=== PATIENT | female | born 1980 | race Caucasian/White ===

== ENCOUNTER 2023-06-27 10:35 | Inpatient (IN) | payer MEDICAID, SELFPAY ==
[2023-06-27] VITALS (11 sets, daily range): BP systolic 113–153; BP diastolic 70–96; PULSE 75–92; RESP 18–22; TEMP 24.4–37; O2SAT 94–100; BMI 33.9
--- NOTE | 2023-06-27 | HYST_PTH ---
PATIENT: SHIN LAWSON LOC: MS3 U#:[id number] AGE/SX: 42/F ROOM: [facility] [place] RE06/27/[address]: Dr. Lindsey Randall DO : 1980 BED: 1 DIS: 06/28/2023 SPEC #: [id number] RECD: 06/27/23 12:23 STATUS: LICHA ALVARO #: [id number] ROSENDO: 06/27/23 00:[address]: Lindsey Randall DEPT: SURGICAL PATHOLOGY RECD BY: Gelacio Michelle ENTERED: 06/27/23 12:23 SP TYPE: HYSTERECT OTHR DR: Dr. Bj Razo MD Tissues: Uterus, NOS Procedures: Surgery Specimen Level V HEADER OPERATION: ERAS, diagnostic laparoscopy PRE-OP DIAGNOSIS: Menorrhagia, fibroid uterus, anemia TISSUE SUBMITTED: Uterus, cervix, bilateral fallopian tubes MICROSCOPIC DIAGNOSIS Uterus, hysterectomy: Cervix - mild chronic inflammation. Endometrial polyp - simple hyperplasia without atypia. Endometrium - weakly proliferative endometrium. Myometrium - leiomyomas. Right fallopian tube - No pathologic change. Left fallopian tube - No pathologic change. AM:italia 06/28/2023 COMMENT Results from immunohistochemistry ([id number]) for surrogate HPV marker (p16) will be reported separately. MICROSCOPIC DESCRIPTION Slides are reviewed. GROSS DESCRIPTION Received in fixative is one container labeled with the patient's name and designated uterus. The specimen consists of a hysterectomy specimen consisting of a detached uterus measuring 12.0 x 11.0 x 7.0 cm. The cervical segment has been detached and measures 4.5 cm in length and 3.5 cm in diameter. The uterus with cervical segment weighs 498 gm. Also present free in the container are two portions of fallopian tubes, one measuring 3.0 cm in length and with a diameter of 0.6 cm. The other fallopian tube measures 3.0 cm in length and 0.8 cm in diameter. The endocervical canal measures 4.0 cm in length and is grossly unremarkable. The triangular endometrial cavity measures 6.0 x 5.5 cm. The velvety, light mejía endometrium measures up to 0.2 cm in thickness. An endometrial polyp is present in the anterior wall measuring 1.0 x 1.0 x 0.2 cm. The myometrium measures 2.8 cm in average thickness and is distorted by multiple spherical rubbery nodules that on cut surface reveal a whorled appearance. The nodules are subserosal, intramural and submucosal in location and range in size from 0.5 to 4.5 cm in greatest dimension. Several of the nodules on cut surface show foci of hemorrhage. S[employer] Supervisor sections are submitted as follows: 1 & 2 - cervix and endocervix, 3 - endometrial polyp, 4 & 5 - anterior myometrial wall, 6 & 7 - posterior myometrial wall, 8 - largest myometrial mass, 9 - second largest myometrial mass, 10 - third largest myometrial mass, 11 - one fallopian tube, 12 - the other fallopian tube. / AM:italia 06/27/2023 TC:1 CPT: 31966
--- NOTE | 2023-06-27 | IMM_PTH ---
PATIENT: SHIN LAWSON LOC: MS3 U#:[id number] AGE/SX: 42/F ROOM: [facility] RE06/27/[address]: Dr. Lindsey Randall DO : 1980 BED: 1 DIS: 06/28/2023 SPEC #: [id number] RECD: 06/28/23 11:50 STATUS: LICHA REQ #: [id number] ROSENDO: 06/27/23 00:[address]: Lindsey Randlal DEPT: IMMUNOHISTOCHEMISTRY RECD BY: Binta Dsouza ENTERED: 06/28/23 11:51 SP TYPE: IMMUNO OT DR: Dr. Bj Razo MD Tissues: Uterus, NOS Procedures: p16 (initial) KI-67 (add) PHYSICIAN & INSTITUTION [facility] [id number] SPECIMEN INFORMATION: Tissue Source: Uterus Clinical Info: Menorrhagia, fibroid uterus, anemia Specimen Number: [id number] CPT code: 38692, 37997 METHODOLOGY: Deparaffinized sections of prefer/formalin-fixed tissue or PAP/DQ stained slides are incubated with monoclonal/polyclonal antibodies/oligonucleotide probes. Localization is made via biotin free immunoperoxidase method. Appropriate controls are performed and reacted as expected. Results on target cell population are indicated in the following table: RESULTS: ANTIBODY / CLONE RESULT P16 (E6H4) negative Ki-67 (30-9) positive, low These tests were developed and their performance characteristics determined by [facility]. They may not have been cleared or approved by the U.S. Food and Drug Administration. The FDA has determined that such clearance or approval is not necessary. The above immunohistochemical/dualISH markers are ordered and reviewed by the Pathologist. INTERPRETATION: Uterus, hysterectomy: No evidence of dysplasia. AM:italia 07/01/2023
[2023-06-27 06:20] LABS: Internal QC Validated? YES +Cl - CLEAR BKGD; Pregnancy, Urine Negative Negative
[2023-06-27] MEDS: Celecoxib 200 MG Capsule 400 MG PO (06:23)
[2023-06-27] MEDS: Phenazopyridine 95 MG Tablet 190 MG PO (06:23)
[2023-06-27] MEDS: Acetaminophen 500 MG Tablet 1000 MG PO ×4 (06:23→23:51)
[2023-06-27] MEDS: Gabapentin 600 MG Tablet PO (06:25)
[2023-06-27] MEDS: dexAMETHasone 4 MG/ML Vial 8 MG IV (06:26)
[2023-06-27] MEDS: Enoxaparin 40 MG/0.4 ML Syringe SC ×2 (06:26→06:30)
[2023-06-27 06:32] LABS: Bedside Glucose 119 mg/dL (74-106)
[2023-06-27] MEDS: Lactated Ringers 1,000 ML 40 ML IV (06:35)
[2023-06-27 07:21] LABS: Magnesium 2.2 mg/dL (1.6-2.6)
[2023-06-27] MEDS: Magnesium 1 GM over 15 mins IV (07:30)
[2023-06-27] MEDS: Cefazolin 2 GM in 0.9% Normal Saline 100 ML IV (07:33)
[2023-06-27] MEDS: Lubricating Jelly 60 GM Tube 30 GM (08:00)
[2023-06-27] MEDS: Ondansetron 4 MG/2 ML Vial IV (09:30)
[2023-06-27] MEDS: Bupivacaine Mpf 0.5% 30 ML VIAL (10:18)
--- NOTE | 2023-06-27 10:21 | OP.PCM_ITS ---
Problems Associated Problem List Diagnoses (1) Menorrhagia: (2) Fibroid uterus: Report of Operation Date of Procedure: 06/27/23 Pre-Operative Diagnosis: Menorrhagia, fibroid uterus, acute blood loss anemia Post-Operative Diagnosis: As above Surgery/Procedure Performed:: Diagnostic laparoscopy with attempted total laparoscopic hysterectomy, total abdominal hysterectomy, bilateral salpingectomy Description of Surgical Findings:: Enlarged fibroid uterus with 2 subserosal fibroids noted: 1 fundal measuring about 4-5 cm in size and one anterior-lateral along the right side of the uterus that was about 3 cm in size. Normal appearing bilateral tubes and ovaries Surgeon: Lindsey Randall aerospace engineer: Emily Lowery Type of Anesthesia: General Special Medications: None Specimen's removed: Uterus, cervix, bilateral fallopian tubes Drains: Mcclelland Estimated Blood Loss (mL): 250 Fluids Replaced: 1400 mL Description of Procedure: Indications: Patient was seen in the office for a fibroid uterus, menorrhagia, and acute blood loss anemia subsequent to the fibroid uterus. She had a pelvic ultrasound, endometrial biopsy, and Pap smear completed in the office. Discussed with patient on several occasions option for referral to minimally invasive gynecologic surgeon, which she declined. Patient desired to proceed with a hysterectomy for fibroid uterus and menorrhagia. She received IV iron infusions with hematology prior to the surgery. Patient was seen in the preop area and again discussed with patient the possibility for a laparotomy and/or s upracervical hysterectomy given enlarged fibroid uterus. Discussed with patient if a laparoscope is placed and I think we need to perform an abdominal hysterectomy, options are proceeding with the abdominal hysterectomy, or closure and referral to MIGS. Patient declines referral to [facility]IGS and states she would rather have an open abdominal hysterectomy today and she understands risks and recovery with a laparotomy. She desires to proceed with surgery. Procedure: The patient was taken to the operating room where general anesthesia was induced. She was prepped and draped in the dorsal lithotomy position using yellow fin stirrups. From below a mcclelland catheter in the bladder was placed, and a uterine manipulator was placed. Gloves were changed and attention was turned to the abdominal portion of the procedure. An infraumbilical incision was made to accommodate a 5 mm trocar which was placed under direct visualization using laparoscope. Once confirmed intraperitoneal, CO2 insufflation was initiated. No injury was noted upon entry. Patient was placed in Trendelenburg position. The uterus was manipulated and 2 subserosal fibroids were noted mostly along the right side of the uterus. At this time it was felt that a laparoscopic hysterectomy was reasonable to attempt. A right lateral 5 mm port and a left lateral 5 mm port were placed. In the left upper quadrant a 5 mm port was placed given enlarged uterus to allow for improved visibility. The uterus was manipulated and the right fallopian tube was elevated out of the pelvis. Using LigaSure device after following the fallopian tube out to the fimbriated end, the mesosalpinx was serially clamped, cauterized, and transected until reaching the level of the uterus. The fallopian tube was then transected at the level of the uterus and removed from the pelvis. Next the round ligament was clamped, cauterized, and transected. The broad ligament was then in an attempt to start the bladder flap. Limited visibility was noted after this given the fibroids, and the decision was made to proceed with an open hysterectomy. The ports were removed. The skin was closed with 4-0 Monocryl in a subcuticular fashion. The uterine manipulator was removed and all instruments were removed from the vagina. The mcclelland catheter remained in place. A Pfannenstiel skin incision was made using a scalpel and this was carried down to the underlying layer of fascia. The fascia was incised in the midline and extended laterally using Keene scissors. The fascia was dissected off the rectus muscles using a combination of blunt and sharp dissection. The peritoneum was opened with good visualization of the bladder, and taking care not to injure any underlying structures. The peritoneal incision was extended bluntly. An Jesus retractor was placed and the bowel was packed away into the upper abdomen for good visualization. The uterus was enlarged and mobile with 2 subserosal fibroids noted. The tubes and ovaries appeared normal bilaterally. The cornua was grasped with a tenaculum for manipulation and the uterus was elevated. The round ligament on the left was grasped and divided using cautery and then sutur e-ligated. The anterior leaf of the broad ligament was then divided and the bladder flap was created. The ureter was identified and found to be well low in the pelvis and cleared the surgical field. An avascular window was found in the posterior leaf the broad ligament and a hole was opened. The utero-ovarian ligament was clamped, cut, and double ligated. The same procedure was carried out on the right with the ureter again found to be well low in the pelvis and cleared of the surgical field. Once the anterior leaf the broad ligament was completely divided, the bladder was taken down off the lower uterine uterine segment and the cervix using a combination of sharp and blunt dissection. The uterine vessels were skeletonized bilaterally. The uterine vessels were bilaterally clamped, cut, and suture-ligated. The cardinal ligaments were bilaterally clamped, cut, and suture-ligated. The utero sacral ligaments were bilaterally clamped, cut, and suture-ligated. The cervix was then divided sharply from the vagina. The uterus, tubes, and cervix were sent to pathology for review. Both corners of the vaginal vault were secured and the vault was closed with several [id number] sutures. Pedicles were then evaluated hemostasis. The left infundibulopelvic ligament was slightly oozy along a serosal edge. The serosa over the IP ligament was oversewn using a [id number]. Good hemostasis was then noted of the IP ligament. All pedicles were sequentially checked for hemostasis which appeared excellent. Dolores was placed over the pedicles and in the pelvis. The bowel pack was then removed and the retractor was removed. The subfascial space was inspected and hemostasis was noted. The fascia was closed with strata fix in a running fashion. Subcutaneous space was inspected and hemostasis was noted. The subcutaneous space was reapproximated 3-0 Vicryl. The skin was closed with a running subcuticular stitch. At the end of the procedure all sponge, needle and instrument counts were correct. The patient was extubated and taken to the recovery room in stable condition. Alterations Sewer Dr. Lowery was present for the entire case: draping patient, hysterectomy, and closure. Grafts/Implants Used: None Procedure Start Time: 07:57 Procedure Stop Time: 10:22 Complications None Admit VTE Documentation VTE Present on Admission: No VTE Mechan Device Prophylaxis: SCD's
[2023-06-27] MEDS: Lactated Ringers @ 40 MLS/HR 40 ML IV (10:47)
[2023-06-27] MEDS: Ketorolac 30 MG/ML Syringe IV ×2 (13:43→21:45)
[2023-06-27] MEDS: oxyCODONE 5 MG Tablet PO ×2 (15:05→23:51)
[2023-06-27] MEDS: 0.9% Saline Lock 10 ML Syringe IV (21:46)
[2023-06-27] MEDS: Docusate Sodium 100 MG Capsule PO (23:51)
[2023-06-28 00:18] VITALS: BP 130/63; PULSE 73; RESP 16; TEMP 36.6; O2SAT 96
[2023-06-28] MEDS: Ketorolac 30 MG/ML Syringe IV (05:45)
[2023-06-28] MEDS: Acetaminophen 500 MG Tablet 1000 MG PO (05:45)
[2023-06-28 07:15] LABS: Hematocrit 41.2 % (37-47); Hemoglobin 12.5 g/dL (12.0-15.0); Mean Corp Hgb Conc 30.3 g/dL (32-36); Mean Corpuscular Hgb 24.7 pg (27.0-32.0); Mean Corpuscular Volume 81.4 fL (81-99); Mean Platelet Vol. 10.2 fl (6.2-12.0); POSITIVE MORPHOLOGY YES; Platelet Count 237 K/mm3 (150-450); RBC Distribution Width CV 20.7 % (11.6-14.6); RBC Distribution Width SD 60.2 fl (35.1-43.9); Red Blood Count 5.06 M/mm3 (4.2-5.4); White Blood Count 10.3 K/mm3 (4.4-11.0)
[2023-06-28 07:20] LABS: Scan Indicated on CBC? Y/N YES- FLAGS NOTED
[2023-06-28 07:29] VITALS: O2SAT 96
--- NOTE | 2023-06-28 08:16 | PCM.PN.OB ---
Subjective Subjective Pt is doing well this morning. Pain is well controlled once medication was given scheduled. She is ambulating without difficulty. Martines catheter still in place. She is tolerating a diet without nausea or vomiting. She offers no complaints and feels ready to go home today. Objective Data Objective Data Vital Signs: Vital Signs Temp Pulse Resp BP Pulse Ox O2 Del Method O2 Flow Rate 97.8 F 73 16 130/63 H 96 Room Air 2 06/28/23 00:18 06/28/23 00:18 06/28/23 00:18 06/28/23 00:18 06/28/23 07:29 06/28/23 07:29 06/27/23 14:18 Oxygen Flow Rate (L/min) 2 Oxygen Delivery Method Room Air Weight: 191 lb 9.6 oz Body Mass Index (BMI) 33.9 Intake & Output: Intake and Output for Last 24 Hours 06/26/23 06/27/23 06/28/23 23:59 23:59 23:59 Intake Total 2862 / 2862 Output Total 3080 / 3080 900 / 900 Balance -218 / -218 -900 / -900 Lab / Micro Data 06/28/23 05:58 Labs: Laboratory Results - last 24 hr 06/28/23 05:58: WBC 10.3, RBC 5.06, Hgb 12.5, Hct 41.2, MCV 81.4, MCH 24.7 L, MCHC 30.3 L, RDW Std Deviation 60.2 H, RDW Coeff of Mychal 20.7 H, Plt Count 237, MPV 10.2, Differential Comment COMMENT Physical Exam Const alert and no apparent distress General Appearance: comfortable Resp normal respiratory effort GI soft to palpation and non-distended GI Narrative: ATTP, incisions are c/d/i, non acute Extremity normal to inspection and no calf tenderness Assessment & Plan (1) S/P hysterectomy: PLAN: Patient is postoperative day 1 from a total abdominal hysterectomy with bilateral salpingectomy. Vital signs are stable. CBC reviewed from this morning and hemoglobin stable. Once ambulating and spontaneously voiding without difficulty today okay for discharge. Discharge instructions reviewed. Has follow-up in the office in 1 to 2 weeks.
--- NOTE | 2023-06-28 08:23 | DCINST_ITS ---
Discharge Instructions Diet Discharge Diet: No restrictions Activity Discharge Activity: May Not Drive (until you feel your strong enough to slam on a car brake and turn a steering wheel sharply) and May Shower May resume sexual activity in: 6 weeks (nothing in the vagina and no soaking in water for 6-8 weeks) Ice area for (Minutes): 15 Weight Bearing Status: Weight bearing as tolerated Lifting Restrictions: Nothing heavier than 10 pounds. No pushing and pulling Dressing / Incision Call your doctor if your incision/area has: Continuous Slow Oozing, Sudden Increased Bleeding, Increased Pain/ Swelling, Increased Redness, Foul Smelling Discharge and Swelling at the incision site Call your doctor if you observe: Fever of 101 or Higher, Coldness, Increased Pain, Numbness or Tingling, Change in Color, Inability to urinate, Inability to have a bowel movement, Using more than 1 pad per hour, Shortness of breath, Dizziness, Fainting spells, Swelling in the ankles, Chest pain, Increased palpitations (irregular heartbeat), Calf discomfort and Uncontrolled pain Suture Line Care: Avoid Pulling/Pushing and Avoid Pinching/Bending Cleanse incision/area with: Soap & Water Follow Up Care Please Follow Up With: Lindsey Randall DO When: 1-2 weeks incision check 6 week post op exam Test Results: Test results from this visit will be discussed in further detail at your follow- up appointment, if applicable. Discharge Plan Admission Admit Date/Time: 06/27/23 10:35 Primary Reason for Your Visit: hysterectomy Attending Provider: Lindsey Randall Primary Care Provider: Bj Razo Instructions Patient Instructions: Abdominal Hysterectomy Dc Discharge Orders/Prescriptions Prescriptions: New ibuprofen 600 mg tablet 600 mg PO Q6H PRN (Reason: pain) Qty: 30 0RF oxycodone-acetaminophen [Percocet] 5-325 mg tablet 1 tab PO Q6H PRN (Reason: pain) 7 Days Qty: 20 0RF docusate sodium [Colace] 100 mg capsule 100 mg PO BID Qty: 30 0RF Continued sertraline 50 MG tablet 50 mg PO DAILY Discontinued ferrous sulfate [iron] 325 mg (65 mg iron) tablet 325 mg PO DAILY norethindrone ac-eth estradiol [June ()] 1.5-30 mg-mcg tablet 1 tab PO DAILY Referrals / Follow Up: Bj Razo MD [Primary Care Provider] - Disposition Disposition (needs filled in before D/C Order can be placed): Home, Self Care
[2023-06-28 08:36] VITALS: BP 123/78; PULSE 78; RESP 18; TEMP 36.6; O2SAT 98
[2023-06-28] MEDS: Docusate Sodium 100 MG Capsule PO (09:06)
[2023-06-28] MEDS: Sertraline 50 MG Tablet PO (09:06)
[2023-06-28] MEDS: oxyCODONE 5 MG Tablet PO (09:07)
--- NOTE | 2023-06-28 10:08 | CASEMGMT ---
TSERING PEREZ Assessment: Face to Face with pt for initial transition planning/care coordination assessment. RN CHRIS introduced self and role at [facility], pt voices understanding and consents to assessment. Pt is A/O x4 and answers all questions appropriately at this time. Pt sitting up in bed in no distress with dtr at bedside. Care providers, pharmacy, and demographics verified/updated. Admitting Dx: hyster, bilat salping PCP:Danni Specialists:Prakash, FISHERIES DIVER Preferred Pharmacy: [facility] Retail Insurance: [facility] [place] Prescription Benefit: yes LNOK: Adrienne Stoll, dtr; Leigh Over, mother Living Arrangements: Pt lives with 3 dtrs in a two story home with 4 steps to enter. Pt reports she is I in ADL's and denies concerns at home. Transportation: Pt drives self and denies concerns with transportation. DME/HHC/SNF: Pt denies having any DME in the home, previous HHC or SNF stays. Pt states no concerns with going home at time of dc. Pt states no further concerns/needs. CM to follow. Advised pt to ask CM if any further question/concerns/needs arise, voices understanding. Pt Goal: Home Plan: Home
--- NOTE | 2023-06-28 12:16 | NURSING ---
Pt voided but only 50cc. Pt was bladder scanned for 116cc. Pt wants to go home but this RN wanted to check with Dr. Randall. Dr. Randall wants her to void more then 50cc before going home.
--- NOTE | 2023-06-28 12:56 | NURSING ---
Pt voided 100cc at this time and bladder scanned by Ksenia Reeder at this time. Per Varinder there was 0 cc measured several times per bladder scan.
== END 2023-06-28 13:12 | disposition home or self-care (01) | DRG 513 ==
LOC: SDC 10:48 → MS3 15:08
PROVIDERS: Admitting Provider Obstetrics & Gynecology; PCP Family Medicine; Referring Provider Obstetrics & Gynecology; Visit Provider Obstetrics & Gynecology
PROC: 0UT94ZZ Resection of Uterus, Percutaneous Endoscopic Approach (ICD-10-PCS; principal; 2023-06-27 07:10)
DX: N92.0 Excessive and frequent menstruation with regular cycle (principal); E66.9 Obesity, unspecified; D62 Acute posthemorrhagic anemia; D25.9 Leiomyoma of uterus, unspecified; N92.4 Excessive bleeding in the premenopausal period; N93.8 Other specified abnormal uterine and vaginal bleeding; Z68.33 Body mass index [BMI] 33.0-33.9, adult
CPT/HCPCS: 36415; 81025; 82962; 83735; 85027; 86850; 86900; 86901; 88307; 88341; 88342; 94668; J7120; A4216; J2405; J3475